=== PATIENT | male | born 1955 | race Caucasian/White ===

== ENCOUNTER → 2020-02-24 11:40 | Outpatient (BNVA) | payer OTHER, SELFPAY | PROVIDERS: Family Provider Electrodiagnostic Medicine; Visit Provider Nurse Practitioner Family | DX: R05 Cough (principal); R09.81 Nasal congestion; R50.9 Fever, unspecified; Z11.59 Encounter for screening for other viral diseases | CPT/HCPCS: 87635 ==

== ENCOUNTER 2021-05-29 14:10 | Emergency (ER) | payer OTHER, SELFPAY ==
[2021-05-29 14:33] VITALS: BP 74/41; PULSE 40; RESP 16; O2SAT 98; BMI 32.1
--- NOTE | 2021-05-29 14:33 | XR_ITS ---
WS: [id number] Left hand, 3 views, 05/29/2021 Clinical Data: saw to the hand Comparison: None. Findings: No new fractures or dislocations are seen. The soft tissues are unremarkable. The joint spaces are no rmal There is a healed fracture of the left fifth metacarpal. XR/XR hand LT min 3V* [id number] Impression: Negative left hand.
--- NOTE | 2021-05-29 14:53 | ED_ITS ---
HPI - General Adult General: Chief complaint: Extremity Injury, Upper Stated complaint: L HAND LAC - CAUGHT IN SAW Time Seen by Provider: 05/29/21 14:33 History of Present Illness: HPI narrative: Patient is a 65-year-old male with no significant past medical history presents emergency room after sustaining 2 lacerations to the left hand after the hand was caught in the soft. Patient reported mild bleeding, post bleeding is controlled this time. Patient denies any other injuries. Patient is able to range his fingers without any difficulty. Onset: 45 minutes ago Duration: 45 minutes Location:home Severity: moderate Review of Systems Narrative: Constitutional: No fever, no chills. HEENT: No vision changes CV: No chest pain, no palpitations PULM: no cough, no dyspnea. GI: No abdominal pain, no N/V/D. : No dysuria MSKEL: No muscle pain, +L second and third digt laceration SKIN: No new rashes, no lesions. NEURO: No headache, no focal weakness. HEME: No visible bruises PSYCH: Normal mood Physical Exam Narrative: EXAM NARRATIVE: Head: Atraumatic Eyes: PERRL, conjunctiva without injection ENT: Mucous membrane moist NECK: Supple, ROM intact LUNGS: LCTAB, no crackles/rhonchi CV: RRR ABDOMEN: Soft, nontender in all quadrants EXTREMITY: Normal ROM SKIN: No rash or erythema NEURO: Awake and alert, no focal motor deficits PSYCH: Normal mood and affect Procedures Laceration Laceration 1: Site: upper extremity Side (If applicable): left Size (cm): 3 Description: stellate Depth: simple, single layer Local Anesthetic: lidocaine 1% Pre-repair: wound explored Skin layer closed with: vicryl Size (cm): 4-0 Number of sutures: 9 Technique: simple, interrupted Laceration 2: Site: upper extremity Side (If applicable): left Size (cm): 3 Description: stellate Depth: simple, single layer Local Anesthetic: lidocaine 1% Amount of anesthesia used (mL): 4 Pre-repair: wound explored and extensive debridement Skin layer closed with: vicryl Size (cm): 4-0 Number of sutures: 5 Technique: simple, interrupted Course Vital Signs: Vital signs: Vital Signs Pulse Rate 71 05/29/21 16:05 Respiratory Rate 18 05/29/21 16:05 Blood Pressure 134/81 05/29/21 16:05 Pulse Oximetry 99 05/29/21 16:05 MDM - General Adult MDM Narrative: Medical decision making narrative: 65-year-old male presenting to the emergency room with accidental lacerations to the second and third distal digit of the left hand. On exam, patient is neurovascularly intact. X-rays negative for any acute fracture. No suspicion for open fracture at this time. Please refer to the procedure note for further documentation of laceration. Patient is given mupirocin and Keflex twice daily x7 days given history of diabetes and significant stellate wound Disposition: Discharge. Patient counseled regarding diagnostic impression, treatment plan. Patient given ED strict return precautions to return for continuation, worsening, or development of new symptoms. Instructed to f/u w/ PCP regarding symptoms today. Patient verbalized understanding. Patient aware that he needs to follow-up with a primary care provider next 48 hours for reevaluation of wounds. Patient is given gauze and wraps for the wound. Patient is aware that the suture needs come out in the next 10 days. Imaging Data^: Other Imaging: Radiologist's impression: [address] [id number] ReportSigned Patient: Paula Foreman #: [id number]: 4[facility]#:[id number]/Sex: 65 / MADM Date: 05/29/21Loc: [facility]/Bed:Attending Dr: Ordering Provider/Ordering MD: Windy Jaime MD Date of Service: 05/29/21 Procedure(s): XR hand LT min 3V* [id number] Accession Number(s): [id number] Report Number: [id number] WS: [id number] Left hand, 3 views, 05/29/2021 Clinical Data: saw to the hand Comparison: None. Findings: No new fractures or dislocations are seen. The soft tissues are unremarkable. The joint spaces are normal There is a healed fracture of the left fifth metacarpal. XR/XR hand LT min 3V* 17291 Impression: Negative left hand. Dictated By:Bridget Huntley MDSigned By:Bridget Huntley MDSigned Date/Time:05/29/21 1501DD/ 1500 Discharge Plan Discharge Patient Disposition: Home Clinical Impression: Accidental laceration Condition: Stable Prescriptions: New acetaminophen 500 mg tablet 500 mg PO TID PRN (Reason: pain) 5 Days Qty: 15 RF: 0 cephalexin 500 mg capsule 500 mg PO BID 7 Days Qty: 14 RF: 0 No Action Basaglar KwikPen U-100 Insulin 100 unit/mL (3 mL) insulin pen 10 unit SUBCUT DAILY RF: 0 metformin 1,000 mg tablet 1,000 mg PO DAILY RF: 0 atorvastatin 10 mg tablet 10 mg PO DAILY RF: 0 fenofibrate 50 mg capsule 50 mg PO DAILY RF: 0 Discharge Orders: Discharge ED (Routine); Ordered 05/29/21 Ordered By: Windy Jaime Referrals: Jesus Red DO [Staff Physician] - Discharge Diet: Advance as tolerated Discharge Activity: Resume usual activity Patient Instructions: Laceration (ED) Activity Restrictions/Additional Instructions: Please take your antibiotics as instructed. Come back to the emergency room if your having any worsening pain, fever/chills, or any new or concerning complaints. 1. Apply cream daily 2. Follow up with PCP for reevaluation of wound in 48-72 hrs 3. Follow up with PCP for suture removal in 10-14 days You can take showers as needed Please apply gauze and pressure to stop the bleeding if any Coding Level of Care Code ED Area Manager for Sen Reeves
[2021-05-29] MEDS: lactated ringers 1,000 ML 999 ML IV (14:56)
[2021-05-29] MEDS: morphine 4 mg/mL SDV 1 mL 2 MG IVP (14:56)
[2021-05-29] MEDS: tetanus-dipt-pertussis 0.5 mL SDV IM (15:03)
[2021-05-29] MEDS: lidocaine 1% INJ 20 mL INJECTION (15:05)
[2021-05-29 16:05] VITALS: BP 134/81; PULSE 71; RESP 18; O2SAT 99
== END 2021-05-29 16:30 | disposition home or self-care (01) ==
LOC: ER 15:09
PROVIDERS: Emergency Provider Emergency Medicine; PCP Electrodiagnostic Medicine
DX: S61.211A Laceration without foreign body of left index finger without damage to nail, initial encounter (principal); S61.213A Laceration without foreign body of left middle finger without damage to nail, initial encounter; W27.0XXA Contact with workbench tool, initial encounter; E11.9 Type 2 diabetes mellitus without complications; Z79.84 Long term (current) use of oral hypoglycemic drugs; Z23 Encounter for immunization
CPT/HCPCS: 12002; 12042; 73130; 90471; 90715; 96361; 96374; 99283; A6446; J2270

== ENCOUNTER 2023-08-27 11:59 | Outpatient (CLI) | payer OTHER, SELFPAY ==
--- NOTE | 2023-08-27 12:06 | CT_ITS ---
WS: [id number] CT ABDOMEN WITH AND WITHOUT CONTRAST HISTORY: CHRONIC PANCREATITIS Contiguous single phase 5 mm axial imaging performed to the abdomen. Oral contrast has not been provi ded. Coronal and sagittal reformats are submitted. All CT scans at [facility] use at least on e of these dose optimization techniques: automated exposure control; mA and/or kV adjustment per jennifer ent size (includes targeted exams where dose is matched to clinical indication); or iterative reconst ruction. IV CONTRAST: Omnipaque 350; 100 mL IV. Oral contrast: No DLP: 1485.38 mGy.cm COMPARISON: 12/08/2016 Lower thorax: Lung bases are clear. Heart is normal size. Small hiatal hernia. Liver/biliary system: Normal size with no intrahepatic dilatation. Gallbladder: Cholelithiasis. No evidence for acute cholecystitis. Pancreas: There is very slight fullness near the pancreatic head and uncinate process but no discrete mass. The enhancement is similar to the remaining pancreas. There is no separation between the duode num and the pancreatic head. There is no evidence for acute pancreatitis. No pancreatic duct dilatati on. Spleen: Spleen is top normal size at 13.0 cm. Adrenal glands: Normal. Right kidney: Mild perinephric stranding. No stones or calcifications. Left kidney: Mild perinephric stranding. No stones or calcifications. Aorta: Normal. Lymphadenopathy: None. Free fluid: None. GI tract: There is mild diffuse gastric wall thickening and thickening of the duodenal C-loop. There is no obstructive pattern. Abdominal wall: Unremarkable abdominal wall. No hernia. Visualized osseous structures: Thoracolumbar fusion hardware. IMPRESSION: 1. No evidence for acute pancreatitis. 2. There is mild diffuse thickening of the stomach and proximal duodenum. Consider acute gastroenter itis and duodenitis. 3. There is also fullness at the pancreatic head but no discrete mass identified. The pancreatic hea d is inseparable from the duodenum. Suggest upper endoscopy with evaluation of the stomach and duoden um to the level of the pancreatic head. 4. No ascites and no adenopathy. 5. Cholelithiasis without acute cholecystitis.
[2023-08-27] MEDS: iohexol 350 mg/mL 500 mL Btl (per mL) PO (12:27)
[2023-08-27] MEDS: iohexol 350 mg/mL 500 mL Btl (per mL) IV (13:10)
== END 2023-08-27 12:00 | disposition home or self-care (01) ==
LOC: RAD 11:59
PROVIDERS: PCP Electrodiagnostic Medicine; Visit Provider Electrodiagnostic Medicine
DX: K86.1 Other chronic pancreatitis (principal); R93.3 Abnormal findings on diagnostic imaging of other parts of digestive tract; K80.20 Calculus of gallbladder without cholecystitis without obstruction
CPT/HCPCS: 74170; Q9967